=== PATIENT | female | born 2000 | race American Indian/Alaskan Native ===

== ENCOUNTER 2021-10-06 17:28 | Emergency (ER) | payer SELFPAY ==
[2021-10-06 20:52] VITALS: BP 113/62
[2021-10-07] MEDS ORDERED: ONDANSETRON 4 MG/2 ML INJ IV ONE (00:51)
[2021-10-07] MEDS ORDERED: fentaNYL 100 MCG/2 ML INJ IV ONE (00:51)
--- NOTE | 2021-10-07 00:58 | Emergency Department Report ---
HPI - General Chief Complaint: Abdominal Pain Time Seen by Provider: 10/07/21 00:43 - HPI HPI: MSE 5 The patient is a 21-year-old female present with a chief complaint of abdominal pain. The patient states for the past 2 weeks has had intermittent pain in the left lower quadrant with occasional radiation to the left upper quadrant. Patient denies nausea vomiting or diarrhea. Patient denies vaginal discharge, dysuria or hematuria. Patient states she is uncertain if she has had a subjective fever or not. Patient currently gives her pain a score of 9/10 ED Past Medical Hx - Past Medical History Previous Medical History?: No - Surgical History Past Surgical History?: No - Family History Family history: no significant - Social History Smoking Status: Never Smoker Substance Use Type: None (Denies illicit drug use), Alcohol (Occasional) - Medications Home Medications: Home Medications Medication Instructions Recorded Confirmed Last Taken Type Famotidine [Pepcid] 20 mg PO BID #30 tablet 10/07/21 Unknown Rx traMADoL [Ultram] 50 mg PO Q6HR PRN #14 tablet 10/07/21 Unknown Rx ED Review of Systems ROS: Stated complaint: LOWER ABD PAIN Other details as noted in HPI Constitutional: fever (? Subjective) Eyes: denies: eye pain ENT: denies: throat pain Respiratory: no symptoms reported Cardiovascular: denies: chest pain Endocrine: no symptoms reported Gastrointestinal: abdominal pain. denies: nausea, vomiting, diarrhea Genitourinary: denies: dysuria, hematuria, discharge Musculoskeletal: denies: back pain Neurological: denies: headache Physical Exam - Physical Exam Vital Signs: Vital Signs 10/06/21 20:51 Temperature 98.8 F Pulse Rate 65 Respiratory 17 Rate Blood Pressure 113/62 O2 Sat by Pulse 100 Oximetry Physical Exam: GENERAL: The patient is well-developed well-nourished female lying on stretcher not appearing to be in acute distress. [] HEENT: Normocephalic. Atraumatic. Extraocular motions are intact. Patient has moist mucous membranes. NECK: Supple. Trachea midline CHEST/LUNGS: Clear to auscultation. There is no respiratory distress noted. HEART/CARDIOVASCULAR: Regular. There is no tachycardia. There is no gallop rub or murmur. ABDOMEN: Abdomen is soft, with tenderness to palpation in the left upper quadrant and left lower quadrant with the greatest tenderness in the left lower quadrant. There is no guarding. Patient has normal bowel sounds. There is no abdominal distention. SKIN: There is no rash. There is no edema. There is no diaphoresis. NEURO: The patient is awake, alert, and oriented. The patient is cooperative. The patient has no focal neurologic deficits. The patient has normal speech. GCS 15 MUSCULOSKELETAL: There is trace left CVA tenderness. There is no evidence of acute injury. ED Course Vital Signs 10/06/21 20:51 Temperature 98.8 F Pulse Rate 65 Respiratory 17 Rate Blood Pressure 113/62 O2 Sat by Pulse 100 Oximetry ED Medical Decision Making - Lab Data Result diagrams: 10/07/21 00:56 10/07/21 00:56 Laboratory Tests 10/07/21 10/07/21 10/07/21 00:56 00:56 00:56 WBC 8.3 RBC 4.26 Hgb 11.4 Hct 36.2 MCV 85 MCH 27 L MCHC 32 RDW 14.1 Plt Count 325 Lymph % (Auto) 38.9 H [place] % (Auto) 7.9 H Eos % (Auto) 2.1 Baso % (Auto) 0.4 Lymph # (Auto) 3.2 [place] # (Auto) 0.7 Eos # (Auto) 0.2 Baso # (Auto) 0.0 Seg Neutrophils % 50.7 Seg Neutrophils # 4.2 Sodium 136 L Potassium 4.4 Chloride 101.2 Carbon Dioxide 25 Anion Gap 14 BUN 16 Creatinine 0.7 Estimated GFR > 60 BUN/Creatinine Ratio 23 Glucose 95 Calcium 9.5 Total Bilirubin 0.40 AST 22 ALT 23 Alkaline Phosphatase 55 Total Protein 7.9 Albumin 4.1 Albumin/Globulin Ratio 1.1 Lipase 33 HCG, Qual Negative Urine Color Urine Turbidity Urine pH Ur Specific [place] Urine Protein Urine Glucose (UA) Urine Ketones Urine Blood Urine Nitrite Urine Bilirubin Urine Urobilinogen Ur Leukocyte Esterase Urine WBC (Auto) Urine RBC (Auto) U Epithel Cells (Auto) Urine Mucus 10/07/21 04:07 WBC RBC Hgb Hct MCV MCH MCHC RDW Plt Count Lymph % (Auto) [place] % (Auto) Eos % (Auto) Baso % (Auto) Lymph # (Auto) [place] # (Auto) Eos # (Auto) Baso # (Auto) Seg Neutrophils % Seg Neutrophils # Sodium Potassium Chloride Carbon Dioxide Anion Gap BUN Creatinine Estimated GFR BUN/Creatinine Ratio Glucose Calcium Total Bilirubin AST ALT Alkaline Phosphatase Total Protein Albumin Albumin/Globulin Ratio Lipase HCG, Qual Urine Color Yellow Urine Turbidity Clear Urine pH 5.0 Ur Specific [place] > 1.030 H Urine Protein <15 mg/dl Urine Glucose (UA) Neg Urine Ketones Neg Urine Blood Neg Urine Nitrite Neg Urine Bilirubin Neg Urine Urobilinogen < 2.0 Ur Leukocyte Esterase Neg Urine WBC (Auto) 1.0 Urine RBC (Auto) 1.0 U Epithel Cells (Auto) 4.0 Urine Mucus Few - Radiology Data Radiology results: report reviewed (CT abdomen pelvis), image reviewed (CT abdomen pelvis) [facility] [address] [place] [address] Cat Scan Report Signed Patient: TONIA ANNE MR#: [id number] : 2000 Acct:[id number] Age/Sex: 21 / F ADM Date: 10/06/21 Loc: ED Attending Dr: Ordering Physician: MICHELLE PIÑA MD Date of Service: 10/07/21 Procedure(s): CT abdomen pelvis w con Accession Number(s): [id number] cc: MICHELLE PIÑA MD CT ABDOMEN AND PELVIS WITH CONTRAST INDICATION / CLINICAL INFORMATION: Left flank, left lower quadrant pain. TECHNIQUE: Axial CT images were obtained through the abdomen and pelvis after 100 cc of Omnipaque [address] scans at this location are performed using CT dose reduction for ALARA by means of automated exposure control. COMPARISON: None available. FINDINGS: LOWER CHEST: No significant abnormality. AORTA / ARTERIES: No significant abnormality. IVC / VEINS: No significant abnormality. LYMPH NODES: No significant adenopathy. COLON: No significant abnormality. APPENDIX: No significant abnormality. STOMACH / SMALL BOWEL: No significant abnormality. PERITONEUM: Small amount of free fluid within the pelvis, likely physiologic No free air. No fluid collection. LIVER: There is a subcentimeter hypoattenuating focus within the right hepatic lobe, likely hepatic cyst. GALLBLADDER: No significant abnormality. BILE DUCTS: No significant abnormality. PANCREAS: No significant abnormality. SPLEEN: No significant abnormality. ADRENALS: No significant abnormality. RIGHT KIDNEY / URETER: No significant abnormality. LEFT KIDNEY / URETER: No significant abnormality. URINARY BLADDER: No significant abnormality. REPRODUCTIVE ORGANS: No significant abnormality. SKELETAL SYSTEM: No significant abnormality. ADDITIONAL FINDINGS: None. IMPRESSION: 1. No acute intra-abdominal or intrapelvic pathology. There is a small amount of free fluid within the pelvis, likely physiologic. 2. Other findings as above. Signer Name: Duncan John DO Signed: 10/07/2021 3:01 AM Workstation Name: [id number] Transcribed By: VALERIY Dictated By: DUNCAN JOHN DO Electronically Authenticated By: DUNCAN JOHN DO Signed Date/Time: 10/07/21 030 DD/ 4 TD/TT: Print Cancel - Differential Diagnosis Pyelonephritis, renal colic, ovarian cyst, diverticulitis Critical care attestation.: If time is entered above; I have spent that time in minutes in the direct care of this critically ill patient, excluding procedure time. ED Disposition Clinical Impression: Acute abdominal pain Disposition: HOME / SELF CARE / HOMELESS Is pt being admited?: No Does the pt Need Aspirin: No Condition: Stable Instructions: Abdominal Pain (ED), Abdominal Pain, Adult, [id number], Pain Without a Known Cause Additional Instructions: Return to the emergency department should you develop worsening symptoms, inability to tolerate food or liquids, high fever or any other concerns Prescriptions: Famotidine [Pepcid] 20 mg PO BID #30 tablet traMADoL [Ultram] 50 mg PO Q6HR PRN #14 tablet PRN Reason: Pain Referrals: PRIMARY CARE,MD [Primary Care Provider] - 3-5 Days ELBA ANNE MD [Staff Physician] - 3-5 Days (Dr. Anne is a integrated marketing specialist. Please follow-up with him for further evaluation) Time of Disposition: 05:23
[2021-10-07 01:35] LABS: Basophils % (Auto) 0.4 % (0.0-1.8); Eosinophils # (Auto) 0.2 K/mm3 (0.0-0.4); Eosinophils % (Auto) 2.1 % (0.0-4.3); Hematocrit 36.2 % (30.3-42.9); Hemoglobin 11.4 gm/dl (10.1-14.3); Lymphocytes # (Auto) 3.2 K/mm3 (1.2-5.4); Lymphocytes % (Auto) 38.9 % (13.4-35.0); Mean Corpuscular HGB Conc 32 % (30-34); Mean Corpuscular Volume 85 fl (79-97); Monocytes # (Auto) 0.7 K/mm3 (0.0-0.8); Monocytes % (Auto) 7.9 % (0.0-7.3); Platelet Count 325 K/mm3 (140-440); Red Blood Count 4.26 M/mm3 (3.65-5.03); Red Cell Distribution Width 14.1 % (13.2-15.2)
[2021-10-07 01:36] LABS: Alanine Aminotransferase 23 units/L (7-56); Albumin 4.1 g/dL (3.9-5); Blood Urea Nitrogen 16 mg/dL (7-17); Calcium 9.5 mg/dL (8.4-10.2); Hemolysis Index 7
[2021-10-07 02:06] LABS: BUN/Creatinine Ratio 23
--- NOTE | 2021-10-07 03:05 | Cat Scan Report ---
CT ABDOMEN AND PELVIS WITH CONTRAST INDICATION / CLINICAL INFORMATION: Left flank, left lower quadrant pain. TECHNIQUE: Axial CT images were obtained through the abdomen and pelvis after 100 cc of Omnipaque [address] scans at this location are performed using CT dose reduction for ALARA by means of automated exposure control. COMPARISON: None available. FINDINGS: LOWER CHEST: No significant abnormality. AORTA / ARTERIES: No significant abnormality. IVC / VEINS: No significant abnormality. LYMPH NODES: No significant adenopathy. COLON: No significant abnormality. APPENDIX: No significant abnormality. STOMACH / SMALL BOWEL: No significant abnormality. PERITONEUM: Small amount of free fluid within the pelvis, likely physiologic No free air. No fluid co llection. LIVER: There is a subcentimeter hypoattenuating focus within the right hepatic lobe, likely hepatic c yst. GALLBLADDER: No significant abnormality. BILE DUCTS: No significant abnormality. PANCREAS: No significant abnormality. SPLEEN: No significant abnormality. ADRENALS: No significant abnormality. RIGHT KIDNEY / URETER: No significant abnormality. LEFT KIDNEY / URETER: No significant abnormality. URINARY BLADDER: No significant abnormality. REPRODUCTIVE ORGANS: No significant abnormality. SKELETAL SYSTEM: No significant abnormality. ADDITIONAL FINDINGS: None. IMPRESSION: 1. No acute intra-abdominal or intrapelvic pathology. There is a small amount of free fluid within th e pelvis, likely physiologic. 2. Other findings as above. Signer Name: Duncan Finney DO Signed: 10/07/2021 3:01 AM Workstation Name: [id number]
[2021-10-07 05:11] LABS: Bilirubin,Urine NEG (Negative); Blood,Urine NEG (Negative); Color,Urine Yellow (Yellow); Mucus,Urine FEW /HPF; Protein,Urine <15 mg/dL mg/dL (Negative); Urobilinogen,Urine < 2.0 mg/dL (<2.0)
== END 2021-10-07 05:47 | disposition home or self-care (01) ==
LOC: ED 17:28
DX: R10.9 Unspecified abdominal pain (principal); Z88.0 Allergy status to penicillin
CPT/HCPCS: 36415; 74177; 80053; 81001; 83690; 84703; 85025; 96374; 96375; 99284; J2405; J3010; Q9967